=== PATIENT | female | born 1980 | race Caucasian/White ===

== ENCOUNTER 2018-10-28 01:44 | Emergency (ER) | payer SELFPAY ==
[2018-10-28] MEDS ORDERED: NALOXONE HCL INJ/PF 0.4 MG/1 ML SDV IV ONE (02:09)
[2018-10-28] MEDS ORDERED: NALOXONE HCL INJ/PF 0.4 MG/1 ML SDV ONE (02:10)
--- NOTE | 2018-10-28 02:57 | ER Document Report ---
ED General - General Chief Complaint: ETOH Abuse Stated Complaint: ETOH Time Seen by Provider: 10/28/18 02:56 Cannot obtain history due to: Intoxicated Notes: Patient is a 38-year-old female who presents by EMS due to altered mental status. No history can be obtained from the patient as she is intoxicated. EMS not available at the time of my initial evaluation for further history taking. TRAVEL OUTSIDE OF THE [place] IN LAST 30 DAYS: No - Related Data Allergies/Adverse Reactions: No Known Allergies Allergy (Unverified 10/28/18 02:09) Past Medical History - General Information source: Patient Cannot obtain history due to: Intoxicated, Altered mental status - Social History Smoking Status: Current Some Day Smoker Frequency of alcohol use: Social Drug Abuse: Marijuana, Methamphetamine, Prescription drugs Family History: Reviewed & Not Pertinent Patient has suicidal ideation: No Patient has homicidal ideation: No Renal/ Medical History: Denies: Hx Peritoneal Dialysis Review of Systems - Review of Systems -: Yes ROS unobtainable due to patient's medical condition Physical Exam - Vital signs Vitals: Pulse Ox 93 10/28/18 01:56 Interpretation: Normal Notes: PHYSICAL EXAMINATION: GENERAL: Heavily intoxicated but otherwise well in appearance HEAD: Atraumatic, normocephalic. EYES: Pupils equal round and reactive to light, extraocular movements intact, sclera anicteric, conjunctiva are normal. ENT: nares patent, oropharynx clear without exudates. Moderately dry mucous membranes. NECK:supple without lymphadenopathy LUNGS: Breath sounds clear to auscultation bilaterally and equal. No wheezes rales or rhonchi. HEART: Regular rate and rhythm without murmurs ABDOMEN: Soft, nontender, normoactive bowel sounds. No guarding, no rebound. No masses appreciated. EXTREMITIES: no pitting or edema. No cyanosis. NEUROLOGICAL: No focal neurological deficits. Moves all extremities spontaneously and on command. PSYCH: Intoxicated, somewhat lethargic but does wake to loud voice SKIN: Warm, Dry, normal turgor, no rashes or lesions noted. Course - Re-evaluation Re-evalutation: 10/28/18 02:57 Patient presents with acute alcohol intoxication without any additional acute complaints. Admits to heavy alcohol use today. No evidence of trauma on exam. Patient was monitored in the emergency department until they were clinically sober. Able to ambulate and talking clear sentences prior to discharge. Tolerating oral intake without difficulty. The patient has been instructed to seek help for alcohol detoxification. Will discharge and return precautions and follow-up recommendations. - Vital Signs Vital signs: Temp Pulse Resp BP Pulse Ox 98.5 F 79 15 113/69 94 10/28/18 01:57 10/28/18 01:57 10/28/18 01:57 10/28/18 03:01 10/28/18 03:01 Discharge - Discharge Clinical Impression: Alcohol intoxication Qualifiers: Complication of substance-induced condition: uncomplicated Qualified Code(s): F10.920 - Alcohol use, unspecified with intoxication, uncomplicated Condition: Good Disposition: HOME, SELF-CARE Additional Instructions: You were seen in the emergency department today for being drunk. Being seen in the emergency department after drinking alcohol is a serious indicator that you have a problem with alcohol. Please return to the emergency room immediately if you experience any concerning symptoms including high fevers, severe headache, chest pain, difficulty breathing, abdominal pain, slurred speech, numbness or weakness in your arms or legs, or any other symptom that concerns you.
[2018-10-28 06:47] VITALS: BP 113/64
== END 2018-10-28 06:30 | disposition home or self-care (01) ==
LOC: ER 01:44
DX: F10.920 Alcohol use, unspecified with intoxication, uncomplicated (principal); R41.82 Altered mental status, unspecified; F17.200 Nicotine dependence, unspecified, uncomplicated; F19.10 Other psychoactive substance abuse, uncomplicated
CPT/HCPCS: 99283; 96374; J2310